=== PATIENT | male | born 1980 | race African-American/Black ===

== ENCOUNTER 2019-08-02 05:59 | Emergency (ER) | payer SELFPAY ==
[~2019-08-02] VITALS: Ht 175.3 cm; Wt 120.5 kg
[~2019-08-02 05:59] MED LIST: ADVIL200 MG PO; AMOXICILLIN 50500 MG PO; BIO-CEF500 MG PO; CLINDAMYCIN150 MG PO; IBUPROFEN800 MG PO; LORTAB 5/500 501 TAB; LORTAB 5/500 501 TAB PO; LORTAB 7.5/5001 TAB PO; NO HOME MEDICATIONS; NORCO 325 MG-51 TAB PO; NORCO 325 MG-7.1 TAB PO; PEN-V250 MG PO; PEN-VEE K250 MG PO; PENICILLIN V250 MG PO; PENICILLIN250 MG PO
[2019-08-02 06:05] VITALS: BP 150/97; TEMP 97.1
[2019-08-02] MEDS ORDERED: NORCO 325 MG-51 TAB PO (06:39)
[2019-08-02] MEDS ORDERED: PEN-VEE K500 MG PO (06:39)
[2019-08-02 07:00] VITALS: PULSE 79
--- NOTE | 2019-08-02 08:50 | NUR ---
DEEPAK received social work nurse consult for the patient due to dental pain and the patient is unemployed at this time and unable to afford payment. The patient is discharged for the ED. DEEPAK contacted [facility]. Daysi states the lowest fee for a limited exam and x-ray is $26. DEEPAK contacted the patient via telephone ([phone]) to discuss options. DEEPAK provided the above information and the phone numbers to [facility] in [place] and to [facility]. The patient states he will contact them to figure something out. There are no additional needs at this time.
== END 2019-08-02 06:58 | disposition home or self-care (01) ==
LOC: COL.ER 05:59
DX: K02.9 Dental caries, unspecified (principal)

== ENCOUNTER 2019-09-29 19:34 | Emergency (ER) | payer SELFPAY ==
[~2019-09-29] VITALS: Ht 175.3 cm; Wt 12.3 kg
[~2019-09-29 19:34] MED LIST changes: +PEN-VEE K500 MG PO
[2019-09-29 19:49] VITALS: BP 163/110; PULSE 76; TEMP 98.7
[2019-09-29] MEDS ORDERED: PERCOCET 325 MG1 TA2 PO (20:09)
[2019-09-29] MEDS ORDERED: PEN-VEE K500 MG PO (20:09)
[2019-09-29] MEDS ORDERED: CLEOCIN HCL300 MG PO (22:55)
== END 2019-09-29 20:20 | disposition home or self-care (01) ==
LOC: COL.ER 19:34
DX: K08.89 Other specified disorders of teeth and supporting structures (principal); F17.210 Nicotine dependence, cigarettes, uncomplicated

== ENCOUNTER 2020-09-13 21:13 | Emergency (ER) | payer SELFPAY ==
[~2020-09-13] VITALS: Ht 175.3 cm; Wt 122.7 kg
[~2020-09-13 21:13] MED LIST changes: +CLEOCIN HCL300 MG PO; +PERCOCET 325 MG1 TA2 PO
[2020-09-13 21:18] VITALS: TEMP 98.7
[2020-09-13 22:23] VITALS: BP 143/87; PULSE 86
== END 2020-09-13 22:23 | disposition home or self-care (01) ==
LOC: COL.ER 21:13
DX: G56.01 Carpal tunnel syndrome, right upper limb (principal); G89.29 Other chronic pain; M79.641 Pain in right hand; F17.210 Nicotine dependence, cigarettes, uncomplicated; Z79.891 Long term (current) use of opiate analgesic